=== PATIENT | male | born 1975 | race African-American/Black ===

== ENCOUNTER 2016-12-02 19:05 | Emergency (ER) | payer MEDICAID ==
[~2016-12-02] VITALS: Ht 180.3 cm; Wt 79.4 kg
[~2016-12-02 19:05] MED LIST: BACL10TA; FAMO20TA30; HYDR-1421; LEVE100S4 PO; MET10T PO; OMEP20CA74 PO; PHEN125S OR; QUET300T14; TRAM100T37 PO; [UNRECOGNIZED DRUG - CODE]
[2016-12-02 19:10] VITALS: BP 114/75
[2016-12-02] MEDS ORDERED: DEXTROSE (50%) 50ML SYRG IV ONE (19:45)
[2016-12-02 20:44] LABS: Basophils # (auto) 0.1 uL; Basophils % (auto) 0.5 % (0.0-2.0); Eosinophils # (auto) 0 uL; Hematocrit 39.3 % (41.0-53.0); Hemoglobin 13.2 g/dL (13.5-17.5); Lymphocytes # (auto) 0.8 uL; Lymphocytes % (auto) 9.3 % (10.0-50.0); Mean Corpuscular Hemoglobin 31.8 pg (28.0-32.0); Mean Corpuscular Hgb Conc. 33.6 g/dL (32.0-36.0); Mean Corpuscular Volume 94.5 fL (80.0-100.0); Monocytes # (auto) 0.5 uL; Monocytes % (auto) 5.6 % (0.0-12.0); Neutrophils # (auto) 7.8 uL; Neutrophils % (auto) 84.6 % (37.0-80.0); Platelet Count (auto) 140 10^3/uL (140-450); Red Cell Distribution Width 14.2 % (11.8-14.3); White Blood Cell 9.2 10^3/uL (4.4-10.8)
[2016-12-02 21:00] LABS: INR 0.98 (0.9-1.15); Prothrombin Time 10.7 sec (9.37-12.3)
[2016-12-02] MEDS ORDERED: HYDROcodone-ACET 10/325MG TAB ONE (21:00)
[2016-12-02 21:05] LABS: Albumin 3.4 g/dL (3.4-5.0); Alkaline Phosphatase 110 U/L (45-117); Anion Gap 7 (5-15); Aspartate Aminotransferase 15 U/L (15-37); BUN/Creatinine Ratio 10.8; Bilirubin, Total 0.4 mg/dL (0.2-1.0); Blood Urea Nitrogen 10 mg/dL (7-18); Calcium 8.3 mg/dL (8.5-10.1); Carbon Dioxide 23 mmol/L (21-32); Chloride 106 mmol/L (98-107); GFR African American 115 mL/min; GFR Non-African American 95 mL/min; Glucose 173 mg/dL (74-106); Magnesium 2.6 mg/dL (1.6-2.6); Potassium 3.7 mmol/L (3.5-5.1); Sodium 136 mmol/L (136-145)
[2016-12-02] MEDS ORDERED: HYDROcodone-ACET 10/325MG TAB PO ONE (21:15)
== END 2016-12-02 21:30 | disposition left against medical advice (07) ==
LOC: EDBD 19:05 → EDSEX 19:05 → ER 19:15
DX: R40.4 Transient alteration of awareness (principal); R11.2 Nausea with vomiting, unspecified; Z53.21 Procedure and treatment not carried out due to patient leaving prior to being seen by health care provider
CPT/HCPCS: 36415; 70450; 71010; 80053; 80320; 82962; 83735; 84484; 85025; 85610; 85730; 93005; 96374; J7042

== ENCOUNTER 2020-02-04 07:57 | Emergency (ER) | payer MEDICAID ==
[~2020-02-04] VITALS: Ht 167.6 cm; Wt 52.2 kg
[~2020-02-04 07:57] MED LIST changes: -BACL10TA; +BACL10TA PO; +DIPH25CA66 PO; -HYDR-1421; +HYDR-4833 PO; -LEVE100S4 PO; +LEVE500T32 PO; -MET10T PO; -PHEN125S OR; -QUET300T14; -TRAM100T37 PO; -[UNRECOGNIZED DRUG - CODE]
[2020-02-04] MEDS ORDERED: LORazepam 2MG/ML-1ML VIAL IV ONE (08:15)
[2020-02-04] MEDS ORDERED: SODIUM CHLORIDE 0.9% 1,000 ML IVB ONE (08:15)
[2020-02-04 08:32] LABS: Basophils # (auto) 0.1 10 ^3/uL (0-0.2); Basophils % (auto) 0.7 % (0.0-2.0); Eosinophils # (auto) 0 10 ^3/uL (0-0.8); Eosinophils % (auto) 0.1 % (0.0-7.0); Hematocrit 45.3 % (41.0-53.0); Hemoglobin 14.9 g/dL (13.5-17.5); Lymphocytes # (auto) 1.1 10 ^3/uL (0.4-5.4); Lymphocytes % (auto) 11.6 % (10.0-50.0); Mean Corpuscular Hemoglobin 30.1 pg (28.0-32.0); Mean Corpuscular Hgb Conc. 32.8 g/dL (32.0-36.0); Mean Corpuscular Volume 91.6 fL (80.0-100.0); Monocytes # (auto) 0.4 10 ^3/uL (0-1.3); Monocytes % (auto) 4.2 % (0.0-12.0); Neutrophils # (auto) 7.6 10 ^3/uL (1.6-8.6); Neutrophils % (auto) 83.4 % (37.0-80.0); Platelet Count (auto) 288 10^3/uL (140-450); Red Blood Cells 4.94 10^6/uL (4.5-5.90); Red Cell Distribution Width 14.4 % (11.8-14.3); White Blood Cell 9.1 10^3/uL (4.4-10.8)
[2020-02-04 08:51] LABS: Potassium 4.2 mmol/L (3.5-5.1)
[2020-02-04 08:56] LABS: BUN/Creatinine Ratio 8.4; Bilirubin, Total 0.3 mg/dL (0.2-1.0)
[2020-02-04 10:34] VITALS: BP 107/73
== END 2020-02-04 12:54 | disposition home or self-care (01) ==
LOC: EDUNIT# 07:57 → ER 07:57 → EDBD 07:57 → ER 12:54
DX: R56.9 Unspecified convulsions (principal); F41.9 Anxiety disorder, unspecified; F32.9 Major depressive disorder, single episode, unspecified; F17.210 Nicotine dependence, cigarettes, uncomplicated; Z90.49 Acquired absence of other specified parts of digestive tract
CPT/HCPCS: 36415; 71045; 80053; 85025; 96365; 96375; 99284; J1953; J2060; J7030; J7060